=== PATIENT | female | born 1940 | race Caucasian/White ===

== ENCOUNTER → 2025-01-17 16:35 | Outpatient (REF) | payer MEDICARE, BC, SELFPAY | LOC: RAD 16:35 | PROVIDERS: ATTENDING PHYSICIAN Student in an Organized Health Care Education/Training Program; FAMILY PHYSICIAN Family Medicine | DX: M25.572 Pain in left ankle and joints of left foot (principal); R05.3 Chronic cough | CPT/HCPCS: 71046; 73610 ==